=== PATIENT | male | born 1985 | race Hispanic/Latino ===

== ENCOUNTER 2017-09-04 08:59 | Emergency (ER) | payer MEDICARE ==
[~2017-09-04] VITALS: Ht 170.2 cm; Wt 136.1 kg
[2017-09-04 10:30] LABS: BILIRUBIN,URINE NEGATIVE (NEGATIVE); KETONES,URINE NEGATIVE (NEGATIVE); LEUKOCYTE ESTERASE ,URINE NEGATIVE (NEGATIVE); NITRITE,URINE NEGATIVE (NEGATIVE); PROTEIN,URINE DIPSTICK NEGATIVE (NEGATIVE); URINE UROBILINOGEN 0.2 mg/dL (0.2 - 1)
[2017-09-04] MEDS ORDERED: ACETAMINOPHEN 325 MG TAB PO ONE (10:45)
[2017-09-04 10:59] LABS: CLARITY,URINE CLEAR (CLEAR); COLOR,URINE YELLOW (YELLOW); EPITHELIAL CELLS,URINE RARE /LPF
--- NOTE | 2017-09-04 13:49 | Diagnostic Imaging Report ---
PROCEDURE:US GALLBLADDER COMPARISON:None. INDICATIONS:Right back pain; right upper quadrant pain. TECHNIQUE: Rascon scale and color Doppler ultrasound gallbladder FINDINGS: The pancreas is obscured. Normal gallbladder. Wall thickness 3 mm. Common bile duct diameter 2 mm. Right liver span 21 cm. Diffusely increased and coarsened echotexture. Portal vein diameter 1 cm; normal flow direction. CONCLUSION: 1. Normal gallbladder without evidence of acute cholecystitis. 2. Hepatomegaly with marked steatosis. Correlate for [place]. Dictated by: Johann Dalton M.D. on 09/04/2017 at 13:58 Electronically approved by: Jhoann Dalton M.D. on 09/04/2017 at 13:58
--- NOTE | 2017-09-04 13:54 | Diagnostic Imaging Report ---
PROCEDURE: CT ABDOMEN AND PELVIS WITHOUT CONTRAST COMPARISON:None. INDICATIONS:Stone TECHNIQUE: Stone protocol Volumetric CT abdomen and pelvis. No intravenous or enteric contrast. Multiplanar reformatted images. DLP: 913.33 FINDINGS: Clear lung bases. No pleural effusions. Normal heart size. Liver: Profoundly decreased attenuation within the clavicular cranial caudal span of 18 cm. Focal fatty sparing along the gallbladder fossa. Gallbladder: Normal Pancreas: Normal Spleen: Normal Adrenal glands: Normal Kidneys: Normal Ureters and urinary bladder: Normal Prostate and seminal vesicles: Normal Bowel: Normal caliber. Normal appendix. Peritoneum: Normal Vasculature: Normal caliber. Lymph nodes: Normal Skeleton: Intact. Preserved vertebral body and disc space height. Soft tissues: Normal CONCLUSION: 1. Hepatomegaly with steatosis. 2. No renal stones or ureteral obstruction. Dictated by: Johann Dalton M.D. on 09/04/2017 at 14:02 Electronically approved by: Johann Dalton M.D. on 09/04/2017 at 14:02
--- NOTE | 2017-09-04 13:55 | Diagnostic Imaging Report ---
PROCEDURE:RIBS UNILAT W/CXR TECHNIQUE:PA chest with AP and oblique views right ribs totaling 7 radiographs INDICATION:Rib pain COMPARISON:None. FINDINGS: Chest: Lungs are clear and symmetrically inflated. No pleural effusions. Normal heart size, mediastinal contour and pulmonary vasculature. Skeleton: Normal. Specifically, the right ribs are intact. CONCLUSION: No acute abnormality. Dictated by: Johann Dalton M.D. on 09/04/2017 at 14:04 Electronically approved by: Johann Dalton M.D. on 09/04/2017 at 14:04
[2017-09-04 14:38] LABS: BASOPHILS % 0.6 % (0.0-1.0); EOSINOPHILS # (AUTO) 0.1 (0.0-0.4); EOSINOPHILS % 1.1 % (0.0-6.0); HEMATOCRIT 38.5 % (38.2-49.6); HEMOGLOBIN 13.6 g/dL (14.0-18.0); LYMPHOCYTES # (AUTO) 0.6 (1.0-3.2); LYMPHOCYTES % 8.2 % (18.0-39.1); MEAN CORPUSCULAR HEMOGLOBIN 29.2 pg (28-32); MEAN CORPUSCULAR HGB CONC 35.3 g/dL (31-35); MEAN CORPUSCULAR VOLUME 82.6 fL (81-99); MONOCYTES # (AUTO) 0.8 (0.2-0.8); MONOCYTES % 10.7 % (4.4-11.3); NEUTROPHILS # (AUTO) 5.7 (2.1-6.9); NEUTROPHILS % 78.7 % (38.7-80.0); PLATELET COUNT 224 x10e3/uL (140-360); RED BLOOD COUNT 4.66 x10e6/uL (4.3-5.7); RED CELL DISTRIBUTION WIDTH 13.3 % (11.7-14.4)
[2017-09-04 14:58] LABS: ALANINE AMINOTRANSFERASE 47 IU/L (0-55); ALBUMIN 3.7 g/dL (3.5-5.0); ALKALINE PHOSPHATASE 56 IU/L (40-150); AMYLASE 36 U/L (25-125); ANION GAP 11.6 mmol/L (8-16); BLOOD UREA NITROGEN 9 mg/dL (7-26); BUN/CREATININE RATIO 9 (6-25); CALCIUM 8.8 mg/dL (8.4-10.2); CARBON DIOXIDE 28 mmol/L (22-29); CHLORIDE 101 mmol/L (98-107); CREATININE, SERUM 1.01 mg/dL (0.72-1.25); EST GLOMERULAR FILTRATION RATE > 60 ML/MIN (60-); GLUCOSE 108 mg/dL (74-118); LIPASE 18 U/L (8-78); POTASSIUM 3.6 mmol/L (3.5-5.1); SODIUM 137 mmol/L (136-145)
== END 2017-09-04 15:46 | disposition home or self-care (01) ==
LOC: ER 08:59
DX: R50.9 Fever, unspecified (principal); R05 Cough; R10.84 Generalized abdominal pain; J09.X2 Influenza due to identified novel influenza A virus with other respiratory manifestations; I10 Essential (primary) hypertension; H40.9 Unspecified glaucoma; E66.9 Obesity, unspecified
CPT/HCPCS: 36415; 71101; 74176; 76705; 80053; 81001; 82150; 83690; 85025; 87086; 87400; 99284